=== PATIENT | female | born 1985 | race Caucasian/White ===

== ENCOUNTER 2019-10-02 01:30 | Emergency (ER) | payer OTHER ==
--- NOTE | 2019-10-02 01:34 | PDOC ---
History of Present Illness - General Chief Complaint: Respiratory Stated Complaint: COUGH SINCE LAST TUESDAY Time Seen by Provider: 10/02/19 01:34 - History of Present Illness Initial Comments: 10/02/19 01:54 This 34-year-old woman with a history of migraine presents with a one-week history of nonproductive cough. Present illness began with sore throat and runny nose, progressing to nonproductive cough; sore throat and runny nose have resolved.. No measured fever or wheezing. Patient presents tonight because of persistent coughing on deep breathing. She denies pleuritic chest pain. No history of asthma or other chronic respiratory illnesses. Patient also complaining of intermittent migraine for the last several days: States that she has temporary relief of her usual migraine headache with her triptan medication but has recurrence of pain, usually within the same day. Past History - Past Medical History Allergies/Adverse Reactions: Allergies Allergy/AdvReac Type Severity Reaction Status Date / Time fluconazole [From Diflucan] Allergy Verified 10/02/19 01:32 Home Medications: Ambulatory Orders Azithromycin [Zithromax 250mg Tablets -] 250 mg PO UTDICT #6 tab 10/02/19 Hydrocodone Bit/Homatrop Me-Br [Hydrocodone-Homatropine Syrup] 5 ml PO TID PRN # 60 ml MDD 15 ml 10/02/19 Naratriptan HCl 25 mg PO PRN 10/02/19 Review of Systems - Review of Systems Able to Perform ROS?: Yes Comments:: 12 point review of systems is negative except for what is noted in the history of present illness *Physical Exam - Physical Exam GENERAL: Adult female, alert and oriented, in mild distress secondary to persistent cough HEAD: Normal with no signs of trauma. EYES: PERRLA, EOMI, sclera anicteric, conjunctiva clear. ENT: Ears normal, nares patent, oropharynx clear without exudates. Moist mucous membranes. NECK: Normal range of motion, supple without lymphadenopathy, JVD, or masses. LUNGS: Breath sounds equal, clear to auscultation bilaterally. No wheezes, and no crackles. HEART:Regular rate and rhythm, normal S1 and S2 without murmur, rub or gallop. ABDOMEN:.normal bowel sounds No guarding,tenderness or rebound.No masses No distention. EXTREMITIES: Normal range of motion, no edema. No clubbing or cyanosis. No erythema, or tenderness. NEUROLOGICAL: Cranial nerves II through XII grossly intact. Normal speech. No focal neurological deficits. MUSCULOSKELETAL: Back non-tender to palpation, no CVA tenderness SKIN: Warm, Dry, normal turgor, no rashes or lesions noted. ED Progress Note - Progress Note Progress Note: This 34-year-old woman with no previous history of asthma or other chronic respiratory issues presents with 1 week history of nonproductive cough that in the last 24 hours has resulted in very frequent coughing episodes. The patient describes spasmodic coughing, especially with deep breathing. She denies pleuritic chest pain or fever. No history of wheezing or significant shortness of breath. Exam as noted with clear lung sounds bilaterally. Because of history of coughing spasms with deep breathing, DuoNeb nebulizer treatment given. Repeat examination reveals better air exchange after nebulizer treatment. Patient has minimal subjective relief however. Patient is given 10 mL of Robitussin-AC for narcotic cough suppression. Patient relates that she has more significant relief after being given Robitussin-AC. Patient asked for medication to help with her recurrent migraine episodes during this upper respiratory infection. Toradol 30 mg IM administered. Small prescription for hydrocodone homatropine syrup (# 60 mL to be taken as 5 mL up to 3 times a day as needed for severe cough) prescribed. The patient cautioned not to engage in any activity requiring her full attention while taking hydrocodone syrup. Also, because of the likelihood that she may have atypical bacterial bronchitis, azithromycin Z-Thomas prescription will be sent to her pharmacy. Discharge - Discharge Information Problems reviewed: Yes Clinical Impression/Diagnosis: Acute bronchitis Qualifiers: Bronchitis organism: unspecified organism Qualified Code(s): J20.9 - Acute bronchitis, unspecified Migraine Qualifiers: Migraine type: unspecified Status migrainosus presence: without status migrainosus Intractability: not intractable Qualified Code(s): G43.909 - Migraine, unspecified, not intractable, without status migrainosus Condition: Stable Disposition: HOME - Additional Discharge Information Prescriptions: Azithromycin [Zithromax 250mg Tablets -] 250 mg PO UTDICT #6 tab Hydrocodone Bit/Homatrop Me-Br [Hydrocodone-Homatropine Syrup] 5 ml PO TID PRN # 60 ml MDD 15 ml PRN Reason: Cough - Follow up/Referral - Patient Discharge Instructions Patient Printed Discharge Instructions: DI for Acute Bronchitis Additional Instructions: Rest; drink plenty of fluids Use vaporizer at night Azithromycin (Z-Thomas) taper as directed Hydrocodone cough syrup 1 teaspoon up to 3 times a day as needed for severe cough Do not engage in any activities requiring your full attention while taking hydrocodone Follow-up with your general doctor within the next 5 days Return to ER if you have persistent shortness of breath, high fever, wheezing - Post Discharge Activity
[2019-10-02 01:43] VITALS: BP 129/95; PULSE 87; TEMP 97.5; BMI 21.0
[2019-10-02] MEDS ORDERED: ALBUTEROL SO4 2.5/IPRATROPIUM 0.5 INH SOL 3 ML VIAL.NEB. NEB ONE ×2 (01:51→01:52)
[2019-10-02] MEDS ORDERED: guaiFENesin/CODEINE 10 ML UNIT-DOSE CUPS ONE (02:14)
[2019-10-02] MEDS ORDERED: guaiFENesin/CODEINE 10 ML UNIT-DOSE CUPS PO ONE (02:22)
[2019-10-02] MEDS ORDERED: KETOROLAC TROMETHAMINE 60 MG/2 ML VIAL IM ONE (02:24)
[2019-10-02] MEDS ORDERED: KETOROLAC TROMETHAMINE 30 MG/1 ML VIAL ONE (02:24)
== END 2019-10-02 02:34 | disposition home or self-care (01) ==
LOC: FER 01:30
PROC: 3E0F7GC Introduction of Other Therapeutic Substance into Respiratory Tract, Via Natural or Artificial Opening (ICD-10-PCS; principal; 2019-10-02)
PROC: 3E0233Z Introduction of Anti-inflammatory into Muscle, Percutaneous Approach (ICD-10-PCS; 2019-10-02)
DX: J20.9 Acute bronchitis, unspecified (principal); G43.909 Migraine, unspecified, not intractable, without status migrainosus; Z88.8 Allergy status to other drugs, medicaments and biological substances
CPT/HCPCS: 99281-25